=== PATIENT | male | born 1980 | race Hispanic/Latino ===

== ENCOUNTER 2018-05-03 01:14 | Observation (INO) | payer SELFPAY ==
[2018-05-03] MEDS ORDERED: Adacel (T-DAP) 0.5 ML SYRINGE ONE (01:30)
[2018-05-03] MEDS ORDERED: Fentanyl 100 MCG/2 ML VIAL ONE ×2 (01:30→04:30)
[2018-05-03 01:46] LABS: #Basophils 0.1 thou/uL (0.0-0.2); #Eosinphils 0.1 thou/uL (0.0-0.7); #Lymphocytes 3.1 thou/uL (1.20-3.40); #Monocytes 0.5 thou/uL (0.11-0.59); #Neutrophils 4.5 thou/uL (1.40-6.50); %Basophils 0.7 % (0.0-1.0); %Lymphocytes 37.5 % (21.0-51.0); %Monocytes 6.3 % (0.0-10.0); %Neutrophils 54.5 % (42.0-75.0); Hemoglobin 18.6 g/dL (14.0-18.0); Mean Corpuscular Hemoglobin 32.9 pg (27.0-31.0); Mean Corpuscular Volume 96.7 fL (78.0-98.0); Mean Platelet Volume 7.5 fL (7.4-10.4); Platelet Count 242 thou/uL (130-400); RBC Distribution Width 11.8 % (11.5-14.5); Red Blood Cell (RBC) Count 5.64 mill/uL (4.70-6.10); White Blood Cell (WBC) Count 8.2 thou/uL (4.8-10.8)
[2018-05-03 02:05] LABS: PTT 25.5 SEC (22.9-36.1); Prothrombin Time 13.5 SEC (12.0-14.7)
[2018-05-03 02:07] LABS: ALT (SGPT) 86 U/L (8-55); AST (SGOT) 86 U/L (5-34); Albumin 4.3 g/dL (3.5-5.0); Alkaline Phosphatase 78 U/L (40-150); Anion Gap 14 mmol/L (10-20); BUN (Urea Nitrogen) 6 mg/dL (8.9-20.6); Bilirubin, Total 0.3 mg/dL (0.2-1.2); Calc. Creatinine Clearance 0 mL/min (70-130); Calcium 8.5 mg/dL (7.8-10.44); Carbon Dioxide 24 mmol/L (22-29); Chloride 108 mmol/L (98-107); Estimated GFR-MDRD 87; Glucose 103 mg/dL (70-105); Lipase 25 U/L (8-78); Potassium 3.5 mmol/L (3.5-5.1); Protein, Total 7.3 g/dL (6.0-8.3); Sodium 142 mmol/L (136-145)
[2018-05-03] MEDS ORDERED: Ondansetron ODT 4 MG TAB PO PRN (05:26)
[2018-05-03] MEDS ORDERED: Dextrose 5% in Water 1,000 ML IV PRN (05:26)
[2018-05-03] MEDS ORDERED: Dextrose 50% Abboject 50 ML SYRINGE SLOW IVP PRN (05:26)
[2018-05-03] MEDS ORDERED: hydrALAZINE 20 MG/ML VIAL SLOW IVP PRN (05:26)
[2018-05-03] MEDS ORDERED: Ondansetron PF 4 MG/2 ML Vial IVP PRN (05:26)
[2018-05-03] MEDS ORDERED: Rib Fracture Protocol PO SCH (05:30)
[2018-05-03] MEDS ORDERED: Morphine 4 MG/ML VIAL SLOW IVP PRN (05:33)
[2018-05-03] MEDS ORDERED: Acetaminophen 325 MG TAB PO PRN (05:33)
[2018-05-03] MEDS ORDERED: Ketorolac Tromethamine 30 MG/ML VIAL IVP SCH (05:45)
[2018-05-03] MEDS ORDERED: Acetaminophen 1,000 MG in Premix Bag 1 BAG IVPB SCH (05:45)
[2018-05-03] MEDS ORDERED: Cyclobenzaprine 10 MG TAB PO PRN (06:00)
[2018-05-03] MEDS: Acetaminophen 500 MG TAB PO SCH ×2 (06:06→12:04)
[2018-05-03] MEDS: Ibuprofen 800 MG TAB PO SCH ×2 (06:11→12:05)
[2018-05-03] MEDS: traMADol HCl 50 MG TAB PO SCH ×2 (06:11→12:04)
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
[2018-05-03] MEDS: Gabapentin 300 MG CAP PO SCH ×2 (08:40→15:54)
[2018-05-03 08:56] VITALS: BMI 25.1
--- NOTE | 2018-05-03 10:06 | RAD ---
AP VIEW CHEST: HISTORY: Sternal fracture, pulmonary contusion. FINDINGS: AP view chest demonstrates no definite evidence of osseous lesions on plain film radiography. Area o f pulmonary contusion again seen in the right upper lobe appearing to have slightly increased since t he previous exam from earlier in the day. No evidence of pneumothorax seen. The left lung is well a erated. IMPRESSION: Area of right upper lobe pulmonary parenchymal contusion. POS: [facility]
[2018-05-03 11:33] VITALS: TEMP 97.8
--- NOTE | 2018-05-03 12:27 | HP ---
HISTORY OF PRESENT ILLNESS: A 37-year-old male, who was outside checking on his horses, when he reached down to feed the horses, and was kicked in the chest. The patient suffered severe chest wall pain. States that it took his breath away from him. Denies any loss of consciousness. Family states that he crawled back to the house, reports he initially did not remember what happened because it happened quickly. The patient has no medical or surgical history and does not have a primary doctor. No previous doctor visits in the past. The patient does admit to drinking alcohol prior to the event. He also reported a sudden onset of shortness of breath and right rib pain. The patient was driven into the ER by family members. REVIEW OF SYSTEMS: CONSTITUTIONAL: The patient denies any fever, chills, or recent illness. HEENT: Denies any facial pain or trauma. Denies sore throat. Denies neck pain. CARDIOVASCULAR: The patient reports midsternal chest pain. Denies palpitations. Also right rib pain. RESPIRATORY: Denies cough. Denies shortness of breath at this time. GI: Denies abdominal pain. Denies constipation. Denies diarrhea. Denies nausea. Denies vomiting. : Denies dysuria. Denies hematuria. MUSCULOSKELETAL: Denies extremity pain. Reports abrasion to right wrist. NEUROLOGIC: Denies headache. Denies loss of consciousness. PHYSICAL EXAMINATION: VITAL SIGNS: Temperature 97.8, blood pressure 108/68, pulse 100, respirations 14, and O2 sats 96% on room air. GCS of 15. HEENT: Atraumatic. Pupils are equal and reactive at 3 mm bilateral. Face, atraumatic. NECK: Nontender. No deformity. Trachea is midline. LUNGS: Equal breath sounds. No deformity. No bruising to the chest. Clubbing noted. The patient is tender to palpation to midchest and right rib area. CARDIOVASCULAR: The patient has regular rate and rhythm. No rubs. ABDOMEN: Atraumatic. Positive bowel sounds x4. Nontender. No masses. PELVIS: Stable, nontender. No deformity. Abrasion and bruising noted to the right hip area and also to the left but smaller. : Atraumatic. BACK: Nontender. No deformities. EXTREMITIES: No deformities. Normal pulses. Full range of motion. Positive abrasion to the right hand and wrist area. Abrasion to left hand. NEUROLOGIC: Motor sensation intact throughout. GCS 15. LABORATORY DATA: WBC 8.2, RBC 5.64, hemoglobin 18.6, hematocrit 54.6, and platelets 242. PT 13.5, INR 1.0, and aPTT 25.5. Sodium 142, potassium 3.5, chloride 108 , CO2 of 24, BUN 6, creatinine 0.96, glucose 103. Total bilirubin 0.3. AST 86, ALT 86, alkaline phosphatase 78. Troponin less than 0.01. Serum protein 7.3. Albumin 4.3, globulin 3.0, lipase 25. DIAGNOSTIC DATA: EKG, normal sinus rhythm and no ischemia noted. Chest x-ray results, sternal fracture. Chest abdomen and pelvis also obtained. Posterior rib fractures on the right, ribs 3 through 9, nondisplaced. ASSESSMENT: 1. Mechanism of injury, kicked by horse. 2. Sternal fracture. 3. Multiple right rib fractures, nondisplaced. 4. Acute traumatic pain. 5. EtOH use. 6. Elevated liver enzymes. 7. Pulmonary contusion. PLAN: We will admit to observation. We will place the patient on p.o. rib fracture protocol. We will manage his pain and encourage pulmonary toilet. Encourage patient to ambulate. We will repeat a chest x-ray in the morning. The patient has been discussed with the admitting surgeon. Job ID: [id number] MTDD
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
[2018-05-03] MEDS ORDERED: Iopamidol 370 76% 100 ML VIAL ONE (13:39)
[2018-05-03 15:48] VITALS: BP 158/86
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
--- NOTE | 2018-05-06 15:01 | EKG ---
Test Reason : Blood Pressure : / mmHG Vent. Rate : 092 BPM Atrial Rate : 092 BPM P-R Int : 142 ms QRS Dur : 082 ms QT Int : 340 ms P-R-T Axes : 017 041 021 degrees QTc Int : 420 ms Normal sinus rhythm Septal infarct , age undetermined Abnormal ECG Confirmed by ANGEL ZAVALA M.D. ([id number]), department editor ELLIS RIVER ([id number]) on 05/06/2018 3:01:23 PM Referred By: Confirmed By:ANGEL ZAVALA M.D.
== END 2018-05-03 16:45 | disposition home or self-care (01) ==
LOC: ERS 01:14 → SURG A 04:23
PROVIDERS: ADMIT Specialist; ATTEND Specialist
DX: S22.20XA Unspecified fracture of sternum, initial encounter for closed fracture (principal); S22.41XA Multiple fractures of ribs, right side, initial encounter for closed fracture; S27.321A Contusion of lung, unilateral, initial encounter; G89.11 Acute pain due to trauma; R94.5 Abnormal results of liver function studies; W55.12XA Struck by horse, initial encounter
CPT/HCPCS: 71045; 71260; 74177; 80053; 83690; 84484; 85025; 85610; 85730; 90471; 90715; 93005; 94640; 96361; 96374; 96375; 96376; G0378; G8978-GP-CJ; G8979-GP-CI; J0131; J1885; J3010; J7620

== ENCOUNTER 2018-05-14 16:11 | Outpatient (CLI) | payer OTHER ==
--- NOTE | 2018-05-14 18:49 | RAD ---
PA AND LATERAL CHEST X-RAY: 05/14/18 HISTORY: Contusion right lung. Closed fracture of multiple ribs. COMPARISON: 05/03/18. FINDINGS: Parenchymal opacity within the lateral aspect of the right mid lung zone has resolved which may be re lated to resolution of parenchymal contusion. The lungs are otherwise clear. The previously seen rib fractures on CT thorax on 05/03/18 are note well delineated on this exam. No other findings. IMPRESSION: 1. No acute cardiopulmonary process. 2. Resolution of parenchymal contusion lateral right mid lung zone with minimal linear densities probably related to either atelectasis or minimal scarring. POS: [facility]
== END 2018-05-14 16:12 | disposition home or self-care (01) ==
LOC: BICRAD 16:11
PROVIDERS: ATTEND Family Medicine
DX: S22.41XD Multiple fractures of ribs, right side, subsequent encounter for fracture with routine healing (principal); S27.321D Contusion of lung, unilateral, subsequent encounter
CPT/HCPCS: 71046

== ENCOUNTER 2018-12-06 23:04 | Emergency (ER) | payer OTHER, SELFPAY ==
[~2018-12-06 23:04] MED LIST: Iopamidol 370 76% 100 ML VIAL ONE
[2018-12-06 23:23] LABS: #Basophils 0.1 thou/uL (0.0-0.2); #Lymphocytes 3.5 thou/uL (1.20-3.40); #Monocytes 0.5 thou/uL (0.11-0.59); #Neutrophils 3.5 thou/uL (1.40-6.50); %Basophils 0.7 % (0.0-1.0); %Eosinophils 0.6 % (0.0-10.0); %Lymphocytes 45.9 % (21.0-51.0); %Monocytes 6.9 % (0.0-10.0); %Neutrophils 45.9 % (42.0-75.0); Hemoglobin 19.1 g/dL (14.0-18.0); Mean Corpuscular HGB CONC 32.6 g/dL (32.0-36.0); Mean Corpuscular Hemoglobin 31.4 pg (27.0-31.0); Mean Corpuscular Volume 96.1 fL (78.0-98.0); Mean Platelet Volume 7.1 fL (7.4-10.4); Platelet Count 245 thou/uL (130-400); RBC Distribution Width 12.3 % (11.5-14.5); White Blood Cell (WBC) Count 7.6 thou/uL (4.8-10.8)
--- NOTE | 2018-12-06 23:37 | CT ---
CT Brain WO Con: 12/06/2018 11:14 PM CLINICAL HISTORY: Pain. COMPARISON: None. FINDINGS: Hemorrhage: None. Ventricular system: Normal in size and morphology for the patient's age. Cerebral parenchyma: Normal Midline shift: None. Mass: No mass effect. Calvarium: Normal. Visualized Paranasal sinuses: Clear. IMPRESSION: No acute intracranial abnormalities. Report provided 2334 hours
--- NOTE | 2018-12-06 23:38 | CT ---
CT Cervical Spine WO Con Indication: Pain/Injury COMPARISON: None FINDINGS: Acute fracture/subluxation: None Spinal alignment: No acute malalignment. Vertebral body heights: Maintained. Cervical spine degenerative change: Mild Chronic deformity of the left first rib. IMPRESSION: No acute osseous abnormality. Report provided at 2335 hours.
[2018-12-06] MEDS ORDERED: Fentanyl 100 MCG/2 ML VIAL ONE (23:40)
--- NOTE | 2018-12-06 23:43 | CT ---
CT CHEST AND ABDOMEN AND PELVIS WITH CONTRAST: CT THORACIC SPINE WITH CONTRAST: CT LUMBAR SPINE WITH CONTRAST: 3D VOLUME RENDERING: HISTORY: Posttraumatic pain. COMPARISON: None. FINDINGS: No consolidation, suspicious nodule, or mass. No pleural effusion. No pneumothorax. No adenopathy. No acute process of the mediastinal structures. Liver: Unremarkable. Gallbladder: Unremarkable. Pancreas: Unremarkable Spleen: Unremarkable. Adrenal glands: Unremarkable. Kidneys: No renal calculus or acute obstruction. No solid or cystic mass. Bowel: No evidence for bowel obstruction. Urinary Bladder: The urinary bladder is unremarkable. Adenopathy: No adenopathy within the abdomen or pelvis. Free Air: No free air. Ascites: No ascites. Osseous structures: No acute osseous abnormalities. Chronic osseous deformity of the posterior left first rib is seen. There is also a mild chronic appearing, callused rib deformity, laterally, involving the right seventh rib and, to lesser extent, right eighth rib. Correlate with patient's hi story. IMPRESSION: No acute posttraumatic sequela. Report provided at 2338 hours. Transcribed Date/Time: 12/07/2018 12:00 AM
[2018-12-06 23:45] LABS: ALT (SGPT) 30 U/L (8-55); AST (SGOT) 27 U/L (5-34); Albumin 4.6 g/dL (3.5-5.0); Alkaline Phosphatase 88 U/L (40-150); Anion Gap 17 mmol/L (10-20); BUN (Urea Nitrogen) 7 mg/dL (8.9-20.6); Bilirubin, Total 0.3 mg/dL (0.2-1.2); Calc. Creatinine Clearance 0 mL/min (70-130); Calcium 9.3 mg/dL (7.8-10.44); Carbon Dioxide 21 mmol/L (22-29); Chloride 107 mmol/L (98-107); Estimated GFR-MDRD 86; Globulin 3.2 g/dL (2.4-3.5); Glucose 105 mg/dL (70-105); Lipase 21 U/L (8-78); Potassium 3.3 mmol/L (3.5-5.1); Protein, Total 7.8 g/dL (6.0-8.3); Sodium 142 mmol/L (136-145)
--- NOTE | 2018-12-06 23:46 | RAD ---
XR Shoulder Lt 3 View STANDARD: 12/06/2018 11:16 PM CLINICAL INDICATION: Injury, pain COMPARISON: None. FINDINGS: Fracture:No fracture. Arthropathy:None of significance. Incidental findings:None of significance. IMPRESSION: 1. No acute osseous abnormality.
--- NOTE | 2018-12-06 23:46 | RAD ---
XR Clavicle Rt 2 V STANDARD: 12/06/2018 11:16 PM CLINICAL INDICATION: Injury, pain COMPARISON: None. FINDINGS: Fracture:No fracture. Arthropathy:None of significance. Incidental findings:None of significance. IMPRESSION: 1. No acute osseous abnormality.
[2018-12-07] MEDS ORDERED: Lidocaine 1% w/Epinephrine 1:100K 20 ML VIAL ONE (00:37)
[2018-12-07] MEDS ORDERED: Adacel (T-DAP) 0.5 ML SYRINGE ONE (01:22)
== END 2018-12-07 01:40 | disposition home or self-care (01) ==
LOC: ERS 23:04
DX: S41.012A Laceration without foreign body of left shoulder, initial encounter (principal); F10.129 Alcohol abuse with intoxication, unspecified; Z71.6 Tobacco abuse counseling; F17.210 Nicotine dependence, cigarettes, uncomplicated; V43.52XA Car driver injured in collision with other type car in traffic accident, initial encounter
CPT/HCPCS: 12004; 36415; 70450; 71260; 72125; 74177; 80053; 80307; 83690; 85025; 86850; 86900; 86901; 90471; 90715; 96374; 99406; G0390; J2001; J3010; Q9967

== ENCOUNTER 2023-11-16 15:36 | Emergency (ER) | payer SELFPAY ==
[2023-11-16] MEDS ORDERED: fentaNYL 50 mcg/mL 1 mL Vial ONE (15:53)
[2023-11-16] MEDS ORDERED: Ondansetron PF 4 MG/2 ML Vial ONE (15:53)
[2023-11-16] MEDS ORDERED: Boostrix 0.5 ML (Tdap) VIAL (>/=7 yrs of age) ONE (16:52)
[2023-11-16] MEDS ORDERED: Ketorolac Tromethamine 30 MG (1 mL) VIAL ONE (17:10)
== END 2023-11-16 17:27 | disposition home or self-care (01) ==
LOC: ERS 15:36
DX: S32.592A Other specified fracture of left pubis, initial encounter for closed fracture (principal); S40.211A Abrasion of right shoulder, initial encounter; R91.1 Solitary pulmonary nodule; V80.010A Animal-rider injured by fall from or being thrown from horse in noncollision accident, initial encounter
CPT/HCPCS: 71260; 74177; 90471; 90715; 96374; 96375; J1885; J2405; J3010; Q9967